=== PATIENT | male | born 1970 | race Caucasian/White ===

== ENCOUNTER 2016-09-03 05:03 | Emergency (ER) | payer OTHER ==
[~2016-09-03] VITALS: Ht 177.8 cm; Wt 84.2 kg
[2016-09-03 05:08] VITALS: Ht 177.8 cm; Wt 84.2 kg
[2016-09-03] MEDS ORDERED: CEPHALEXIN 500 MG CAP PO ONE (06:30)
[2016-09-03] MEDS ORDERED: LIDOCAINE 1%/EPI (MDV) 20 ML INJ SC ONE (06:30)
[2016-09-03] MEDS ORDERED: TRIMETHOPRIM/SULFAMETHOX (DS) TAB PO ONE (06:30)
[2016-09-03] MEDS ORDERED: IBUPROFEN 800 MG TAB PO ONE (06:30)
[2016-09-03] MEDS ORDERED: CEPH-443 PO (07:45)
[2016-09-03] MEDS ORDERED: IBUP-1542 PO (07:45)
[2016-09-03] MEDS ORDERED: BACTDS PO (07:45)
--- NOTE | 2016-09-03 09:52 | ERD ---
ER Documentation Chief Complaint Date/Time DATE: 09/03/16 TIME: 09:50 Chief Complaint abscess left upper leg HPI Patient is a 46-year-old male with no medical problems who presents with left groin abscess. He said that he is injecting heroin in that area because he has no pains elsewhere. He said this infection started 2 weeks ago but was getting worse. He has had drainage from the area. He has subjective fever but has not taken his temperature. He has had no treatment as of yet. He does not currently have a primary doctor. ROS All systems reviewed and are negative except as per history of present illness. Medications Home Meds Active Scripts Ibuprofen* (Motrin*) 600 Mg Tab, 600 MG PO Q6H Y for PAIN AND OR ELEVATED TEMP, #30 TAB Prov:MARBELLA FELDER MD 09/03/16 Cephalexin* (Keflex*) 500 Mg Capsule, 500 MG PO QID for 7 Days, CAP Prov:MARBELLA FELDER MD 09/03/16 Sulfamethoxazole-Trimethoprim* (Bactrim* DS) 800-160 Mg Tab, 1 TAB PO BID for 7 Days, TAB Prov:MARBELLA FELDER MD 09/03/16 Allergies Allergies: Coded Allergies: No Known Allergy (Unverified , 09/03/16) PMhx/Soc Medical and Surgical Hx: pt denies Medical Hx, pt denies Surgical Hx Hx Alcohol Use: Yes Hx Substance Use: Yes Hx Tobacco Use: Yes Smoking Status: Current some day smoker FmHx Family History: No diabetes Physical Exam Vitals Vital Signs Date Time Temp Pulse Resp B/P Pulse Ox O2 Delivery O2 Flow Rate FiO2 09/03/16 05:08 98.2 84 20 135/62 99 Physical Exam Const: Mild distress secondary to groin pain Head: Atraumatic Eyes: Normal Conjunctiva ENT: Normal External Ears, Nose and Mouth. Neck: Full range of motion..~ No meningismus. Resp: Clear to auscultation bilaterally Cardio: Regular rate and rhythm, no murmurs Abd: Soft, non tender, non distended. Normal bowel sounds Skin: Fluctuance and induration in the left upper thigh, there is no scrotal or penile involvement, no signs of Doa's gangrene, no necrotizing fasciitis Back: No midline or flank tenderness Ext: No cyanosis, or edema Neur: Awake and alert Psych: Normal Mood and Affect Results 24 hrs Current Medications Medications (Trade) Dose Ordered Sig/Yonas Route PRN Reason Start Time Stop Time Status Last Admin Dose Admin Trimethoprim/ Sulfamethoxazole (Bactrim (Ds)) 1 tab ONCE ONCE PO 09/03/16 06:30 09/03/16 06:31 DC 09/03/16 06:36 Cephalexin (Keflex) 500 mg ONCE ONCE PO 09/03/16 06:30 09/03/16 06:31 DC 09/03/16 06:36 Ibuprofen (Motrin) 800 mg ONCE ONCE PO 09/03/16 06:30 09/03/16 06:31 DC 09/03/16 06:36 Lidocaine/ Epinephrine (Xylocaine 1%/ Epi (Mdv) 20 ml) 20 ml ONCE ONCE SC 09/03/16 06:30 09/03/16 06:31 DC 09/03/16 06:37 Procedures/MDM Abscess Incision and Drainage with irrigation by me: Location: Left thigh Anesthesia: Local 1% Lidocaine with epinephrine Technique: Irrigated. Disrupted loculations w/ instrumentation Packing: None Complications: Neurovascularly intact post procedure 48 hour wound check. Scar minimization instructions given. ED Ultrasound: Abscess localized by me using concurrent ultrasound guidance and assessment of the anatomy. Real time image archived in the medical record confirms anatomy. Patient's skin symptoms have stabilized while they have been evaluated in the department and are appropriate for outpatient care and work up. Exam and w/u not consistent w/ sepsis, deep space infection, or foreign body. At this point there is no sign of Dao's gangrene. The patient will be treated with Bactrim and Keflex as an outpatient. He feels much better after the incision and drainage. The patient can return for any worsening symptoms. He should follow-up the local clinics within 48 hours for a wound check and can return sooner if symptoms worsen. Departure Diagnosis: Primary Impression: Abscess Condition: Fair Patient Instructions: Abscess, Incision And Drainage Referrals: COMMUNITY CLINICS YOU HAVE RECEIVED A MEDICAL SCREENING EXAM AND THE RESULTS INDICATE THAT YOU DO NOT HAVE A CONDITION THAT REQUIRES URGENT TREATMENT IN THE EMERGENCY DEPARTMENT. FURTHER EVALUATION AND TREATMENT OF YOUR CONDITION CAN WAIT UNTIL YOU ARE SEEN IN YOUR DOCTORS OFFICE WITHIN THE NEXT 1-2 DAYS. IT IS YOUR RESPONSIBILITY TO MAKE AN APPOINTMENT FOR FOLOW-UP CARE. IF YOU HAVE A PRIMARY DOCTOR --you should call your primary doctor and schedule an appointment IF YOU DO NOT HAVE A PRIMARY DOCTOR YOU CAN CALL OUR PHYSICIAN REFERRAL HOTLINE AT IF YOU CAN NOT AFFORD TO SEE A PHYSICIAN YOU CAN CHOSE FROM THE FOLLOWING [facility] CL[facility] [address] [facility] [address] [facility]. [facility] [address] [facility] [address] [facility]. [facility] [address] [facility]. [facility] [address] Additional Instructions: Call your primary care doctor TOMORROW for an appointment during the next 1-2 days.See the doctor sooner or return here if your condition worsens before your appointment time. MARBELLA FELDER MD Sep 03, 2016 09:52
[2016-09-04] MEDS ORDERED: BACTDS PO (06:35)
== END 2016-09-03 08:05 | disposition home or self-care (01) ==
LOC: FTE 05:03
DX: L02.416 Cutaneous abscess of left lower limb (principal); F17.210 Nicotine dependence, cigarettes, uncomplicated

== ENCOUNTER 2016-09-04 05:11 | Emergency (ER) | payer OTHER ==
[~2016-09-04] VITALS: Ht 177.8 cm; Wt 82.4 kg
[~2016-09-04 05:11] MED LIST: BACTDS PO; CEPH-443 PO; IBUP-1542 PO
[2016-09-04 05:15] VITALS: Ht 177.8 cm; Wt 82.4 kg
[2016-09-04] MEDS ORDERED: LIDOCAINE 1% (MDV) 20 ML INJ SC ONE (06:30)
[2016-09-04] MEDS ORDERED: BACTDS PO (06:35)
--- NOTE | 2016-09-04 06:38 | ERD ---
ER Documentation Chief Complaint Date/Time DATE: 09/04/16 TIME: 06:36 Chief Complaint WOUND CHECK SP I &D YESTERDAY HPI Patient is 46-year-old male with history of IV drug use (heroin) who presents the emergency department with abscess to his left leg. Patient denies any new or recent drug use. Patient states that he noticed this additional abscess approximately 2 days ago. Patient states that the area is tender to touch. Patient denies any drainage from the area. Patient denies any fever, chills, nausea, vomiting, abdominal pain, back pain, loss of consciousness. Patient was seen here 1 days ago for an additional abscess in his left groin. Patient denies any warmth, swelling, active discharge or bleeding from affected area. Patient does not recall his tetanus shot. Patient states that he is taking the Keflex, however he has not filled the Bactrim prescription secondary to difficult financial means. ROS All systems reviewed and are negative except as per history of present illness. Medications Home Meds Active Scripts Sulfamethoxazole-Trimethoprim* (Bactrim* DS) 800-160 Mg Tab, 1 TAB PO BID for 7 Days, TAB Prov:COLE VO PA-C 09/04/16 Ibuprofen* (Motrin*) 600 Mg Tab, 600 MG PO Q6H Y for PAIN AND OR ELEVATED TEMP, #30 TAB Prov:MARBELLA FELDER MD 09/03/16 Cephalexin* (Keflex*) 500 Mg Capsule, 500 MG PO QID for 7 Days, CAP Prov:MARBELLA FELDER MD 09/03/16 Sulfamethoxazole-Trimethoprim* (Bactrim* DS) 800-160 Mg Tab, 1 TAB PO BID for 7 Days, TAB Prov:MARBELLA FELDER MD 09/03/16 Allergies Allergies: Coded Allergies: No Known Allergy (Unverified , 09/03/16) PMhx/Soc Medical and Surgical Hx: pt denies Medical Hx, pt denies Surgical Hx History of Surgery: No Anesthesia Reaction: No Hx Neurological Disorder: No Hx Respiratory Disorders: No Hx Cardiac Disorders: No Hx Psychiatric Problems: No Hx Miscellaneous Medical Probl: No Hx Alcohol Use: Yes Hx Substance Use: Yes Hx Tobacco Use: Yes Smoking Status: Current every day smoker Physical Exam Vitals Vital Signs Date Time Temp Pulse Resp B/P Pulse Ox O2 Delivery O2 Flow Rate FiO2 09/04/16 07:22 98.9 78 18 116/76 100 Room Air 09/04/16 05:15 97.2 82 20 106/56 98 Physical Exam GENERAL: Well-developed, well-nourished male. Appears in no acute distress. HEAD: Normocephalic, atraumatic. EYES: Pupils are equally reactive bilaterally. EOMs grossly intact. No conjunctival erythema. ENT: Moist mucous membranes. No uvula deviation. No kissing tonsils. NECK: Supple. No lymphadenopathy or thyromegaly. No meningismus. LUNG: Clear to auscultation bilaterally. No rhonchi, wheezing, rales or coarse breath sounds. HEART: Regular rate and rhythm. No murmurs, rubs or gallops. ABDOMEN: No scars, ecchymosis or rashes noted. Soft, nontender, and nondistended. Positive bowel sounds in all four quadrants.~No rebound tenderness , no guarding. (-) McBurneys point tenderness. No CVA tenderness. BACK: No midline tenderness. Extremities: Equal pulses bilaterally. No peripheral clubbing, cyanosis or edema. No unilateral leg swelling. NEUROLOGIC: Alert and oriented. Moving all four extremities. 5/5 strength in all extremities. Normal speech. Steady gait. SKIN: Normal color. Warm and dry. Numerous old needle injection sites and scars noted on patient's limbs. Patient's prior abscess in left groin: mildly erythematous, no active discharge noted. No signs of macrina's gangrene. LEFT CALF: + Abscess formation with fluctuance and induration. No active bleeding or discharge. Area is warm and tender to palpation. No lymphatic streaking. Results 24 hrs Current Medications Medications (Trade) Dose Ordered Sig/Yonas Route PRN Reason Start Time Stop Time Status Last Admin Dose Admin Lidocaine (Xylocaine 1% (Mdv) 20 ml) 20 ml ONCE ONCE SC 09/04/16 06:30 09/04/16 06:31 DC Diphtheria/ Tetanus/Acell Pertussis (Adacel) 0.5 ml ONCE ONCE IM* 09/04/16 07:30 09/04/16 07:31 DC 09/04/16 07:15 Procedures/MDM ED COURSE: INCISION AND DRAINAGE: The patient was verbally consented prior to procedure. Patient was explained the risks, benefits and alternatives to this procedure. Location: left calf Abscess size: 5 cm, circular, fluctuance and induration noted Anesthesia: local 1% lidocaine, 5 cc Preparation: The area was prepped in a sterile fashion using betadine x3 cleanses. A sterile field was prepared. Technique: A sterile 11 blade scalpel was used to make a 1 cm linear incision into the abscess. Procedure: A midline abscess incision was made using a sterile scalpel in a linear fashion. Purulent material was expressed with direct pressure. Blunt probing was used to break up loculations. Bleeding was minimal. Packing: none The patient tolerated the procedure well with no complications. The wound was dressed in sterile gauze. The patient was neurovascularly intact post- procedure. Post-procedural wound care was discussed with the patient. MEDICAL DECISION MAKING: This is a 46 year old male with hx of IV drug use who presents with numerous abscess. Patient had I&D done of abscess in left groin. Today patient presents with concerns of an abscess to left calf. Vital signs were reviewed. Patient was afebrile. Left calf was noted to be indurated and fluctuant. +Abscess formation. An incision and drainage was performed. Purulent discharge was expressed from abscess site. Patient tolerated procedure well. Patient was given Tdap vaccination today. Low suspicion for deep space abscess, macrina's gangrene, necrotizing fascitis at this time. PRESCRIPTIONS: Bactrim DISCHARGE: At this time, the patient is stable for discharge and outpatient management. Post-procedural wound care was discussed with the patient. The patient has been advised to return to the ER in 2 days for a wound check. I advised the patient to fill his Bactrim rx ESTELITA. Patient advised to refrain from IV drug use. I have instructed the patient to promptly return to the ER for any new or worsening symptoms including increasing pain, fever, warmth, redness or swelling. The patient and/or family expressed understanding of and agreement with this plan. All questions were answered. Home care instructions were provided. Departure Diagnosis: Primary Impression: Encounter for incision and drainage procedure Additional Impression: Abscess Condition: Stable Patient Instructions: Abscess, Incision And Drainage Referrals: COMMUNITY CLINICS YOU HAVE RECEIVED A MEDICAL SCREENING EXAM AND THE RESULTS INDICATE THAT YOU DO NOT HAVE A CONDITION THAT REQUIRES URGENT TREATMENT IN THE EMERGENCY DEPARTMENT. FURTHER EVALUATION AND TREATMENT OF YOUR CONDITION CAN WAIT UNTIL YOU ARE SEEN IN YOUR DOCTORS OFFICE WITHIN THE NEXT 1-2 DAYS. IT IS YOUR RESPONSIBILITY TO MAKE AN APPOINTMENT FOR [place]-UP CARE. IF YOU HAVE A PRIMARY DOCTOR --you should call your primary doctor and schedule an appointment IF YOU DO NOT HAVE A PRIMARY DOCTOR YOU CAN CALL OUR PHYSICIAN REFERRAL HOTLINE AT IF YOU CAN NOT AFFORD TO SEE A PHYSICIAN YOU CAN CHOSE FROM THE FOLLOWING [facility] [address] [facility] [address] [facility] [address] [facility] [address] [facility] [address] [facility]. [facility] [address] [facility]. [facility] YOU HAVE RECEIVED A MEDICAL SCREENING EXAM AND THE RESULTS INDICATE THAT YOU DO NOT HAVE A CONDITION THAT REQUIRES URGENT TREATMENT IN THE EMERGENCY DEPARTMENT. FURTHER EVALUATION AND TREATMENT OF YOUR CONDITION CAN WAIT UNTIL YOU ARE SEEN IN YOUR DOCTORS OFFICE WITHIN THE NEXT 1-2 DAYS. IT IS YOUR RESPONSIBILITY TO MAKE AN APPOINTMENT FOR FOLOW-UP CARE. IF YOU HAVE A PRIMARY DOCTOR --you should call your primary doctor and schedule and appointment IF YOU DO NOT HAVE A PRIMARY DOCTOR YOU CAN CALL OUR PHYSICIAN REFERRAL HOTLINE AT . IF YOU CAN NOT AFFORD TO SEE A PHYSICIAN YOU CAN CHOSE FROM THE FOLLOWING [facility]: [facility] [address] [place] [address] [facility] [address] [place] [address] [facility] [address] [place] [address] Additional Instructions: Patient advised to return to the emergency department 48 hours for wound recheck. Patient advised to return sooner for any new or worsening symptoms including redness, swelling, severe pain, fever, chills, nausea, vomiting. Call your primary care doctor TOMORROW for an appointment during the next 1-2 days.See the doctor sooner or return here if your condition worsens before your appointment time. COLE VO PA-C Sep 04, 2016 06:38
[2016-09-04 07:22] VITALS: BP 116/76; PULSE 78; RESP 18; TEMP 98.9
[2016-09-04] MEDS ORDERED: DIPHTH/TET/ACEL PERTUSS (ADULT) 0.5 ML VIAL IM* ONE (07:30)
== END 2016-09-04 07:32 | disposition home or self-care (01) ==
LOC: FTE 05:11
DX: L02.416 Cutaneous abscess of left lower limb (principal); F17.210 Nicotine dependence, cigarettes, uncomplicated; Z23 Encounter for immunization
CPT/HCPCS: 90471; 90715

== ENCOUNTER 2016-09-09 05:52 | Emergency (ER) | payer OTHER ==
[~2016-09-09] VITALS: Ht 177.8 cm; Wt 81.5 kg
[2016-09-09 06:22] VITALS: Ht 177.8 cm; Wt 81.5 kg
[2016-09-09] MEDS ORDERED: LIDOCAINE 2% (MDV) 20 ML INJ INJ ONE (07:00)
[2016-09-09] MEDS ORDERED: CLIN-73 PO ×2 (07:06→07:41)
[2016-09-09] MEDS ORDERED: CEFTRIAXONE 1 GM INJ IM ONE (07:30)
--- NOTE | 2016-09-09 12:48 | ERD ---
ER Documentation Chief Complaint Date/Time DATE: 09/09/16 TIME: 12:40 Chief Complaint LT LOWER LEG ABSCESS, HAD I & D, FEELS ABSCESS IS BACK HPI 46-year-old male who had received incision and drainage of his left lower leg abscess 5 days ago return here today stating that his abscess has returned. He has pain and swelling at the site of abscess. He has been taking the antibiotics as prescribed. Able to ambulate. Denies fever or chills. ROS All systems reviewed and are negative except as per history of present illness. Medications Home Meds Active Scripts Clindamycin Hcl* (Clindamycin Hcl*) 300 Mg Capsule, 300 MG PO TID for 10 Days, CAP Prov:MASSIEL TIM BRANCH SERVICES MANAGER 09/09/16 Sulfamethoxazole-Trimethoprim* (Bactrim* DS) 800-160 Mg Tab, 1 TAB PO BID for 7 Days, TAB Prov:COLE VO PA-C 09/04/16 Ibuprofen* (Motrin*) 600 Mg Tab, 600 MG PO Q6H Y for PAIN AND OR ELEVATED TEMP, #30 TAB Prov:MARBELLA FELDER MD 09/03/16 Cephalexin* (Keflex*) 500 Mg Capsule, 500 MG PO QID for 7 Days, CAP Prov:MARBELLA FELDER MD 09/03/16 Sulfamethoxazole-Trimethoprim* (Bactrim* DS) 800-160 Mg Tab, 1 TAB PO BID for 7 Days, TAB Prov:MARBELLA FELDER MD 09/03/16 Discontinued Scripts Clindamycin Hcl* (Clindamycin Hcl*) 300 Mg Capsule, 300 MG PO TID for 10 Days, CAP Prov:MASSIEL TIM BRANCH SERVICES MANAGER 09/09/16 Allergies Allergies: Coded Allergies: No Known Allergy (Unverified , 09/09/16) PMhx/Soc Medical and Surgical Hx: pt denies Medical Hx, pt denies Surgical Hx History of Surgery: No Anesthesia Reaction: No Hx Neurological Disorder: No Hx Respiratory Disorders: No Hx Cardiac Disorders: No Hx Psychiatric Problems: No Hx Miscellaneous Medical Probl: No Hx Alcohol Use: Yes Hx Substance Use: No Hx Tobacco Use: No Smoking Status: Never smoker Physical Exam Vitals Vital Signs Date Time Temp Pulse Resp B/P Pulse Ox O2 Delivery O2 Flow Rate FiO2 09/09/16 06:22 98.4 95 18 106/62 97 Physical Exam General impression: Well-developed, well-nourished. Alert, oriented, in no acute distress Head: Normocephalic, atraumatic. Eyes: PERRL, EOM normal. Conjunctiva not injected. Neck: Supple, nontender. No lymphadenopathy. No nuchal rigidity. Respiration: Normal respiratory effort. Lungs clear to auscultate bilaterally. No wheezes, rales or rhonchi. Cardiovascular: Regular rate and rhythm. No murmurs or extra heart sounds. Extremities: A large area of erythematous induration noted on the lateral left lower leg. The induration measures approximately 10 cm x 20 cm x 5 cm in size, tender and warm to touch. Large area of fluctuance noted. Neuro: Mental status normal, speech normal. KEY PERSON grossly intact. Skin: Normal turgor. No rash or lesions. Psych: Normal mood and affect. Results 24 hrs Current Medications Medications (Trade) Dose Ordered Sig/Yonas Route PRN Reason Start Time Stop Time Status Last Admin Dose Admin Lidocaine (Xylocaine 2% (Mdv) 20 ml) 20 ml ONCE ONCE INJ 09/09/16 07:00 09/09/16 07:01 DC Ceftriaxone Sodium (Rocephin) 1 gm ONCE ONCE IM 09/09/16 07:30 09/09/16 07:31 DC 09/09/16 07:26 Procedures/MDM Procedure note: Incision and Drainage Verbal consent obtained for incision and drainage of patient's abscess. The area was prepped with Betadine. Lidocaine 2% was infiltrated for local anesthesia. After appropriate anesthesia, incision was made using #11 blade. Copious amount of purulent discharge was drained from the abscess. The abscess was probed for loculation. It was then irrigated with 90 ml of NS solution. Iodoform 1/2" packing tape approximately 6-8 inches long was inserted into the abscess. The wound was then cleaned and dressed. Patient tolerated procedure well. Low suspicion for necrotizing fasciitis or lymphangitis. Low suspicion for osteomyelitis. Patient is already taking Bactrim DS and Keflex. Rocephin 1 g IM given to the patient in the ED. I will also prescribe him with clindamycin. Patient is advised to return to ED in 2 days for follow-up dressing change. Departure Diagnosis: Primary Impression: Abscess Condition: Good Patient Instructions: Abscess, Incision And Drainage Referrals: COMMUNITY CLINICS YOU HAVE RECEIVED A MEDICAL SCREENING EXAM AND THE RESULTS INDICATE THAT YOU DO NOT HAVE A CONDITION THAT REQUIRES URGENT TREATMENT IN THE EMERGENCY DEPARTMENT. FURTHER EVALUATION AND TREATMENT OF YOUR CONDITION CAN WAIT UNTIL YOU ARE SEEN IN YOUR DOCTORS OFFICE WITHIN THE NEXT 1-2 DAYS. IT IS YOUR RESPONSIBILITY TO MAKE AN APPOINTMENT FOR FOLOW-UP CARE. IF YOU HAVE A PRIMARY DOCTOR --you should call your primary doctor and schedule an appointment IF YOU DO NOT HAVE A PRIMARY DOCTOR YOU CAN CALL OUR PHYSICIAN REFERRAL HOTLINE AT IF YOU CAN NOT AFFORD TO SEE A PHYSICIAN YOU CAN CHOSE FROM THE FOLLOWING [facility] [address] [facility]. [facility] [address] [facility]. [facility] [address] [facility] [address] [facility]. [facility] [address] [facility]. [facility] [address] Additional Instructions: Return to this facility in 2 DAYS for a follow-up exam.Return sooner if your condition worsens. MASSIEL TIM NP Sep 09, 2016 12:47
== END 2016-09-09 07:45 | disposition home or self-care (01) ==
LOC: FTE 05:52
DX: L02.416 Cutaneous abscess of left lower limb (principal)
CPT/HCPCS: 10061; 96372; 99284; J0696

== ENCOUNTER 2016-09-11 04:29 | Emergency (ER) | payer SELFPAY ==
[~2016-09-11] VITALS: Ht 177.8 cm; Wt 82.5 kg
[~2016-09-11 04:29] MED LIST changes: +CLIN-73 PO
[2016-09-11 04:45] VITALS: Ht 177.8 cm; Wt 82.5 kg
== END 2016-09-11 06:07 | disposition left against medical advice (07) ==
LOC: FTE 04:29
DX: Z53.21 Procedure and treatment not carried out due to patient leaving prior to being seen by health care provider (principal)

== ENCOUNTER 2016-10-21 15:50 | Emergency (ER) | payer MEDICAID ==
[~2016-10-21] VITALS: Ht 180.3 cm; Wt 84.5 kg
[2016-10-21 16:13] VITALS: Ht 180.3 cm; Wt 84.5 kg
[2016-10-21] MEDS ORDERED: OPHTHALMIC IRRIG SOLUTION 120 ML LEFT EYE ONE (18:30)
[2016-10-21] MEDS ORDERED: FLUORESCEIN STRIP LEFT EYE ONE (18:30)
[2016-10-21] MEDS ORDERED: TETRACAINE 0.5% 4 ML OPH LEFT EYE ONE (18:30)
[2016-10-21 19:16] VITALS: BP 133/70; PULSE 72; RESP 20; TEMP 98
--- NOTE | 2016-10-21 19:17 | ERD ---
ER Documentation Chief Complaint Date/Time DATE: 10/21/16 TIME: 19:08 Chief Complaint LEFT EYE PAIN , POSSIBLE PARTICAL IN EYE HPI 46-year-old male complaining of left eye irritation. Patient stated that he was helping a friend with a project. He went under table to tighten the screw was then a particle fell into his left eye. He thinks is a piece of metal. He did not rub the eye, he flushed it with water. Currently, he still feels like he has a foreign object under his left upper eyelid. Denies visual changes. ROS All systems reviewed and are negative except as per history of present illness. Medications Home Meds Active Scripts Clindamycin Hcl* (Clindamycin Hcl*) 300 Mg Capsule, 300 MG PO TID for 10 Days, CAP Prov:MASSIEL TIM SUPERVISORY LIFEGUARD 09/09/16 Sulfamethoxazole-Trimethoprim* (Bactrim* DS) 800-160 Mg Tab, 1 TAB PO BID for 7 Days, TAB Prov:COLE VO PA-C 09/04/16 Ibuprofen* (Motrin*) 600 Mg Tab, 600 MG PO Q6H Y for PAIN AND OR ELEVATED TEMP, #30 TAB Prov:MARBELLA FELDER MD 09/03/16 Cephalexin* (Keflex*) 500 Mg Capsule, 500 MG PO QID for 7 Days, CAP Prov:MARBELLA FELDER MD 09/03/16 Sulfamethoxazole-Trimethoprim* (Bactrim* DS) 800-160 Mg Tab, 1 TAB PO BID for 7 Days, TAB Prov:MARBELLA FELDER MD 09/03/16 Allergies Allergies: Coded Allergies: No Known Allergy (Unverified , 09/09/16) PMhx/Soc Medical and Surgical Hx: pt denies Medical Hx History of Surgery: No Anesthesia Reaction: No Hx Neurological Disorder: No Hx Respiratory Disorders: No Hx Cardiac Disorders: No Hx Psychiatric Problems: No Hx Miscellaneous Medical Probl: No Hx Alcohol Use: Yes Hx Substance Use: No Hx Tobacco Use: No Physical Exam Vitals Vital Signs Date Time Temp Pulse Resp B/P Pulse Ox O2 Delivery O2 Flow Rate FiO2 10/21/16 16:13 98.6 75 17 128/62 97 Physical Exam General impression: Well-developed, well-nourished. Alert, oriented, in no acute distress Head: Normocephalic, atraumatic. Eyes: PERRL, EOM normal. No foreign body noted in the left eye. ENT: External canals patent. TM'sclear. Nasal mucosa, oral mucosa and oropharynx are normal. Neck: Supple, nontender. No lymphadenopathy. No nuchal rigidity. Respiration: Normal respiratory effort. Lungs clear to auscultate bilaterally. No wheezes, rales or rhonchi. Cardiovascular: Regular rate and rhythm. No murmurs or extra heart sounds. Neuro: Mental status normal, speech normal. GAS FITTER APPRENTICE grossly intact. Skin: Normal turgor. No rash or lesions. Psych: Normal mood and affect. Results 24 hrs Current Medications Medications (Trade) Dose Ordered Sig/Yonas Route PRN Reason Start Time Stop Time Status Last Admin Dose Admin Tetracaine HCl (Tetracaine 0.5% Steri-Unit Cora) 1 drop ONCE ONCE LEFT EYE 10/21/16 18:30 4 18:31 DC Fluorescein Sodium (Lrmtv-B-Evhwz) 1 strip ONCE ONCE LEFT EYE 10/21/16 18:30 10/21/16 18:31 DC Irrigating Solution (Eye Wash) 1 applic ONCE ONCE LEFT EYE 10/21/16 18:30 10/21/16 18:31 DC 10/21/16 18:49 Procedures/MDM Well-appearing 46-year-old male presented to ED with left eye irritation and foreign body sensation. Left upper eyelid was everted, no foreign bodies noted on exam. Tetracaine ophthalmic solution was instilled into patient's left eye. Fluoresceins dye was then applied. Patient was examined under Wood's lamp. No dye uptake was noted. Visual acuity left 20/20, right 20/30, bilateral 20/20. Patient does not appear to have any foreign body or corneal abrasion. No sign of globe rupture, hyphema, or subconjunctival hemorrhage. I doubt corneal ulcer. Patient advised to rest with his eyes closed for next 2 days. If his symptom does not improve after 2 days or has gotten worse, he is advised to follow-up with an organ installer. Departure Diagnosis: Primary Impression: Foreign body, eye Encounter type: initial encounter Laterality: left Qualified Code: T15.92XA - Foreign body, eye, left, initial encounter Condition: Good Patient Instructions: Corneal Foreign Body, Removed Referrals: [facility] Hours: Mon - Fri 9:00 AM - 5:00 PM Additional Instructions: Follow up with an organ installer (eye doctor) if the symptoms do not improve after 2 days. MASSIEL TIM NP Oct 21, 2016 19:17
== END 2016-10-21 19:17 | disposition home or self-care (01) ==
LOC: FTE 15:50
DX: T15.92XA Foreign body on external eye, part unspecified, left eye, initial encounter (principal); W20.8XXA Other cause of strike by thrown, projected or falling object, initial encounter; Y92.9 Unspecified place or not applicable
CPT/HCPCS: Z7502; Z7610; 99282